=== PATIENT | female | born 1990 | race Caucasian/White ===

== ENCOUNTER 2024-10-19 20:06 | Emergency (ER) | payer OTHER ==
[2024-10-19 20:31] VITALS: RESP 17; TEMP 97.5
--- NOTE | 2024-10-19 21:15 | CT ---
EXAMINATION TYPE: CT brain cspine wo con DATE OF EXAM: 10/19/2024 9:00 PM COMPARISON: None. CLINICAL INDICATION: Female, 34 years old with history of fall injury; fall TECHNIQUE: Brain: Multiple axial CT images of the brain were obtained without IV contrast. Cspine: Axial CT images from the skull base to the inferior aspect of T2 we obtained without intraven ous contrast. Coronal and sagittal reformatted images were also reviewed. . CT DLP: 1580.1 mGycm, Automated exposure control for dose reduction was used. FINDINGS: Brain: Extra-axial spaces: No abnormal extra-axial fluid collections. Ventricular system: Within normal limits Cerebral parenchyma: No acute intraparenchymal hemorrhage or mass effect. The cordova-white junction is well differentiated. Cerebellum: Unremarkable. Mass effect: No evidence of midline shift. Intracranial vasculature: unremarkable Soft tissues: Normal. Calvarium/osseous structures: No depressed skull fracture. Paranasal sinuses and mastoid air cells: Clear. Visualized orbits: Orbital contents are intact. Cervical spine: Fracture: None. Osseous structures: Several small avulsion fracture along the anterior superior margin of the C6 vert ebral body (series 100 image 51). Cervical spine vertebral body heights are maintained. No evidence o f a compression fracture. Vertebral alignment: Normal cervical spine lordotic curvature. No subluxation. Spinal canal/Neural Foramina: No evidence of high-grade spinal canal stenosis. Neck soft tissues: Prevertebral soft tissues are within normal limits. Other: The airway is patent. The lung apices are clear. IMPRESSION: 1. No acute intracranial process. 2. Questionable small avulsion fracture involving the anterior superior margin of the C6 vertebral b thien versus developmental abnormality. Consider correlation any prior outside imaging if available demetrius anuj more definitive evaluation with MRI if clinically warranted. 3. No traumatic subluxation. [facility], , 10/19/2024 9:13 PM
--- NOTE | 2024-10-19 21:19 | ED ---
Fall HPI - General Source: patient, EMS Mode of arrival: EMS - History of Present Illness MD Complaint: fall Onset/Timin -: hour(s) Fall From: wheelchair When Fall Occurred: 1 hour [employer] Fall Witnessed: yes, by family Place Fall Occurred: other Loss of Consciousness: none Prolonged Down Time?: no Symptoms Prior to Fall: none Location: head, neck, back Severity: moderate Quality: aching Associated Symptoms: denies <Marcos Josue - Last Filed: 10/19/24 21:14> <Chantel Salcido - Last Filed: 10/21/24 01:32> - General Chief Complaint: Fall Stated Complaint: Fall Time Seen by Provider: 10/19/24 20:09 - History of Present Illness Initial Comments: This patient is a 34-year-old woman who arrives as a transfer from [facility] to have evaluation after having had a fall. The patient was using a wheelchair at the facility and states she was attempting to go up a ramp when the wheelchair flipped backwards and she landed striking the back of her head and neck. The patient complains of pain there and also in the low back just above the hips. She is not having weakness or numbness of the extremities. She did not have loss of consciousness. No laceration. No pain to the chest, abdomen or extremities. (Marcos Josue) - Related Data Allergies Allergy/AdvReac Type Severity Reaction Status Date / Time No Known Allergies Allergy Verified 10/19/24 20:25 Review of Systems ROS Other: All systems not noted in ROS Statement are negative. Constitutional: Denies: fever Eyes: Denies: eye pain, vision change ENT: Denies: hearing loss Respiratory: Denies: cough, dyspnea Cardiovascular: Denies: chest pain, palpitations, edema, syncope Gastrointestinal: Denies: abdominal pain, nausea, vomiting, diarrhea Genitourinary: Denies: dysuria, hematuria Musculoskeletal: Reports: as per HPI, back pain Skin: Denies: rash Neurological: Reports: headache. Denies: weakness, numbness, paresthesias, confusion Hematological/Lymphatic: Denies: easy bleeding <Marcos Josue - Last Filed: 10/19/24 21:14> ROS Other: All systems not noted in ROS Statement are negative. <Chantel Salcido - Last Filed: 10/21/24 01:32> ROS Statement: Those systems with pertinent positive or pertinent negative responses have been documented in the HPI. Past Medical History Past Medical History: Asthma, Liver Disease History of Any Multi-Drug Resistant Organisms: None Reported Past Surgical History: Appendectomy, Section, Tonsillectomy Additional Past Surgical History / Comment(s): Laminectomy Past Psychological History: Bipolar, Depression Smoking Status: Current some day smoker, Vaper Past Alcohol Use History: Heavy Past Drug Use History: Marijuana <Marcos Josue - Last Filed: 10/19/24 21:14> General Exam Limitations: no limitations General appearance: alert, in no apparent distress Head exam: Present: atraumatic, normocephalic Eye exam: Present: normal appearance, PERRL, EOMI. Absent: scleral icterus, conjunctival injection ENT exam: Present: normal oropharynx Neck exam: Present: normal inspection, tenderness, other (Cervical collar) Respiratory exam: Present: normal lung sounds bilaterally. Absent: respiratory distress, wheezes, rales, rhonchi, stridor, chest wall tenderness, accessory muscle use Cardiovascular Exam: Present: regular rate, normal rhythm, normal heart sounds. Absent: systolic murmur, diastolic murmur, rubs, gallop GI/Abdominal exam: Present: soft. Absent: distended, tenderness, guarding, rebound, rigid, mass Extremities exam: Present: normal inspection, normal capillary refill. Absent: pedal edema, calf tenderness Back exam: Present: normal inspection, paraspinal tenderness, vertebral tenderness. Absent: CVA tenderness (R), CVA tenderness (L) Neurological exam: Present: alert, oriented X3, CN II-XII intact. Absent: motor sensory deficit Skin exam: Present: warm, dry, intact, normal color. Absent: rash <LiatMarcos - Last Filed: 10/19/24 21:14> Course Vital Signs 10/19/24 10/19/24 20:12 23:48 Temperature 97.5 F L Pulse Rate 76 84 Respiratory 17 17 Rate Blood Pressure 124/80 115/73 O2 Sat by Pulse 96 95 Oximetry Medical Decision Making <Chantel Salcido - Last Filed: 10/21/24 01:32> - Medical Decision Making Was patient admitted / discharged? Hospital course, mention meds given and route, prescriptions, significant lab abnormalities, going to OR and other pertinent info. @Transfer to [facility]-patient was signed out to myself pending imaging completion. She is a 34-year-old female, was at [place] [facility] facility today and using a wheelchair. The wheelchair flipped backward and she sustained a neck and back injury. On my assessment patient is resting comfortably with a c-collar in place. CT C-spine showed possible small C6 avulsion fracture. CT of the L-spine did not show signs of fracture but did show a bulging disc. On my reassessment patient does endorse lower neck pain. She denies any neurologic symptoms of the upper extremities any new numbness or weakness. She states that she is aware of the bulging disc in her lower back. I have detailed these findings and discussed plan for transfer to facility with a spine surgeon for further assessment. Patient agreeable plan of care. SHe has no numbness or weakness throughout her upper extremities. She will be given Decadron, IM, Dilaudid IM. She is currently in stable condition. Will be kept in a c-collar. Case was discussed Dr. Alva, trauma, [facility] kindly accepted patient for transfer. Undiagnosed new problem with uncertain prognosis? @ -[No] Drug Therapy requiring intensive monitoring for toxicity (Heparin, Nitro, Insulin, Cardizem)? @ -[No] Were any procedures done? @ -[No] Diagnosis/symptom? @ -C6 avulsion fracture Acute, or Chronic, or Acute on Chronic? @Acute Uncomplicated (without systemic symptoms) or Complicated (systemic symptoms)? @Uncomplicated Side effects of treatment? @ -[No] Exacerbation, Progression, or Severe Exacerbation? @ -[No] Poses a threat to life or bodily function? How? (Chest pain, USA, MD, pneumonia, PE, COPD, DKA, ARF, appy, cholecystitis, CVA, Diverticulitis, Homicidal, Suicidal, threat to staff... and all critical care pts) @ -Potentially, yes if left untreated and an unstable fracture, could result in spinal cord damage or impingement. (Chantel Salcido) Disposition <Marcos Josue - Last Filed: 10/19/24 21:14> - Out of Hospital Transfer - Req. Specs Out of Hospital Transfer - Requested Specifics: Other Emergency Center ([facility]) <Chantel Salcido - Last Filed: 10/21/24 01:32> Clinical Impression: C6 cervical fracture, Fall, Bulging lumbar disc Disposition: OTHER INSTITUTION NOT DEFINED Condition: Good Referrals: Nonstaff,Physician [Primary Care Provider] - 1-2 days
[2024-10-19] MEDS: KETOROLAC 15 MG/ML 1 ML VIAL IM STA (21:20)
[2024-10-19] MEDS: ORPHENADRINE 30 MG/ML 2 ML VIAL IM STA (21:34)
[2024-10-19] MEDS: ACETAMINOPHEN TAB 325 MG TAB PO STA (21:36)
--- NOTE | 2024-10-19 21:36 | CT ---
EXAMINATION TYPE: CT lumbar spine wo con DATE OF EXAM: 10/19/2024 9:00 PM COMPARISON: None. CLINICAL INDICATION: Female, 34 years old with history of fall injury; PHH, back pain, fall TECHNIQUE: Multiple axial images were obtained from the midportion of T11 through the sacroiliac chidi nts. Soft tissue and bone windows in coronal and sagittal planes were obtained and reviewed. 3-D ref ormats of the bones were created on a separate workstation and submitted for review. CT DLP: 1959.6 mGycm, Automated exposure control for dose reduction was used. FINDINGS: Alignment: There are 5 lumbar type vertebral bodies within normal alignment. Bone: Mild multilevel facet arthropathy. Lumbar spine vertebral body heights are maintained. No acut e fracture or traumatic subluxation. 5 lumbar type vertebral bodies are present in the purposes of th is examination. Discs: T12-L1: No spinal canal or neural foraminal stenosis is identified. L1-L2: No spinal canal or neural foraminal stenosis is identified. L2-L3: No spinal canal or neural foraminal stenosis is identified. L3-L4: No spinal canal or neural foraminal stenosis is identified. Mild facet arthropathy and ligame nt flavum hypertrophy. L4-L5: No spinal canal or neural foraminal stenosis is identified. Minimal circumferential disc bulg ing minimally effaces the ventral thecal sac. Facet arthropathy and ligament of flavum hypertrophy. L5-S1: Significant broad based disc protrusion with facet arthropathy causes moderate spinal canal na rrowing and moderate bilateral neuroforaminal narrowing. Other: None IMPRESSION: 1. No acute fracture or traumatic subluxation of the lumbosacral spine. 2. Significant broad-based disc protrusion with facet arthropathy causes moderate spinal canal steno sis and bilateral neural foraminal narrowing at L5-S1. Recommend outpatient MRI lumbosacral spine for further evaluation if clinically warranted. [facility], , 10/19/2024 9:34 PM
[2024-10-19] MEDS: HYDROmorphone 1 MG/ML 1 ML SYRINGE IM STA (23:21)
[2024-10-19] MEDS: DEXAMETHASONE SOD PHOSPHATE 10 MG/ML 1 ML VIAL IM STA (23:23)
[2024-10-19 23:48] VITALS: BP 115/73; PULSE 84
== END 2024-10-19 23:54 | disposition other institution (70) ==
LOC: EC 20:06
DX: S12.500A Unspecified displaced fracture of sixth cervical vertebra, initial encounter for closed fracture (principal); M51.369 Other intervertebral disc degeneration, lumbar region without mention of lumbar back pain or lower extremity pain; F17.290 Nicotine dependence, other tobacco product, uncomplicated; W05.0XXA Fall from non-moving wheelchair, initial encounter
CPT/HCPCS: 72125; 72131; 70450; 99285; 51702; J1100; J2360; J1171; J1885